=== PATIENT | male | born 1940 | race Caucasian/White ===

== ENCOUNTER 2023-02-25 20:00 | Emergency (ER) | payer MEDICARE, BC ==
[~2023-02-25 20:00] MED LIST: Iopamidol 370 76% 100 ML VIAL ONE
[2023-02-25 20:57] LABS: ALT (SGPT) 20 U/L (8-55); AST (SGOT) 17 U/L (5-34); Albumin 4.1 g/dL (3.4-4.8); Alkaline Phosphatase 86 U/L (40-110); Anion Gap 14 mmol/L (10-20); BUN (Urea Nitrogen) 14 mg/dL (8.4-25.7); Bilirubin, Total 0.3 mg/dL (0.2-1.2); Calc. Creatinine Clearance 0 mL/min (70-130); Calcium 9.2 mg/dL (7.8-10.44); Carbon Dioxide 22 mmol/L (23-31); Chloride 103 mmol/L (98-107); Estimated GFR 85; Globulin 2.7 g/dL (2.4-3.5); Glucose 181 mg/dL (83-110); Potassium 4.1 mmol/L (3.5-5.1); Protein, Total 6.8 g/dL (5.8-8.1); Sodium 135 mmol/L (136-145)
[2023-02-25 21:02] LABS: Hematocrit 37.8 % (38.8-50.0); Mean Corpuscular HGB CONC 34.4 g/dL (32.0-36.0); Mean Corpuscular Hemoglobin 30.7 pg (27.0-33.0); Mean Corpuscular Volume 89.4 fl (81.2-95.1); Mean Platelet Volume 9.7 fl (7.4-10.4); Platelet Count 189 10x3/uL (150-450); RBC Distribution Width 14.9 % (11.5-14.5); Red Blood Cell (RBC) Count 4.23 10x6/uL (4.32-5.72); White Blood Cell (WBC) Count 14.8 10x3/uL (3.5-10.5)
[2023-02-25 21:04] LABS: MDiff Complete? YES
[2023-02-25 21:08] LABS: Eosinophils 1 % (0-10); Lymphocytes 54 % (21-51); Monocytes 5 % (0-10); Neutrophil 38 % (42-75); Reactive Lymphocytes 1 % (0-10)
[2023-02-25 21:16] LABS: Anisocytosis SLIGHT = 6-15 cells (100X) (0-5/hpf); Poikilocytosis SLIGHT = 6-15 cells (100X) (0-5/hpf)
[2023-02-25 21:17] LABS: Elliptocytes SLIGHT = 2-5 cells (100X) (0-1/hpf); Microcytosis SLIGHT = 6-15 cells (100X) (0-5/hpf); Platelet Adequacy Comment Appears Adequate
[2023-02-25 23:11] LABS: Troponin I Less than 0.010 ng/mL (< 0.028)
== END 2023-02-25 23:24 | disposition home or self-care (01) ==
LOC: CSHERS 20:00
DX: I10 Essential (primary) hypertension (principal)
CPT/HCPCS: 36415; 71045; 71275; 80053; 83880; 84484; 85025; 85379; 93005; Q9967

== ENCOUNTER 2023-10-07 10:04 | Emergency (ER) | payer MEDICARE, BC ==
[2023-10-07] MEDS ORDERED: cloNIDine 0.1 MG TAB ONE (10:46)
[2023-10-07] MEDS ORDERED: hydrALAZINE 25 MG TAB ONE (10:49)
[2023-10-07 11:12] LABS: Anion Gap 14 mmol/L (10-20); BUN (Urea Nitrogen) 14 mg/dL (8.4-25.7); Calc. Creatinine Clearance 0 mL/min (70-130); Calcium 9.8 mg/dL (7.8-10.44); Carbon Dioxide 24 mmol/L (23-31); Chloride 102 mmol/L (98-107); Estimated GFR 79; Glucose 119 mg/dL (83-110); Sodium 136 mmol/L (136-145)
== END 2023-10-07 11:43 | disposition home or self-care (01) ==
LOC: CSHERS 10:04
DX: I10 Essential (primary) hypertension (principal)
CPT/HCPCS: 36415; 80048; 99283

== ENCOUNTER 2023-11-02 11:12 | Observation (INO) | payer MEDICARE, BC ==
[2023-11-02 12:04] LABS: Hematocrit 37.3 % (38.8-50.0); Hemoglobin 13.4 g/dL (13.5-17.5); Mean Corpuscular HGB CONC 35.9 g/dL (32.0-36.0); Mean Corpuscular Hemoglobin 31.2 pg (27.0-33.0); Mean Corpuscular Volume 86.7 fL (81.2-95.1); Mean Platelet Volume 9.3 fL (7.4-10.4); Platelet Count 218 10x3/uL (150-450); White Blood Cell (WBC) Count 12.7 10x3/uL (3.5-10.5)
[2023-11-02 12:14] LABS: ALT (SGPT) 22 U/L (8-55); AST (SGOT) 19 U/L (5-34); Albumin 3.7 g/dL (3.4-4.8); Alkaline Phosphatase 63 U/L (40-110); Anion Gap 13 mmol/L (10-20); BUN (Urea Nitrogen) 19 mg/dL (8.4-25.7); Bilirubin, Total 0.6 mg/dL (0.2-1.2); Calc. Creatinine Clearance 0 mL/min (70-130); Calcium 9.3 mg/dL (7.8-10.44); Carbon Dioxide 22 mmol/L (23-31); Chloride 97 mmol/L (98-107); Estimated GFR 72; Globulin 2.7 g/dL (2.4-3.5); Glucose 127 mg/dL (83-110); Protein, Total 6.4 g/dL (5.8-8.1); Sodium 128 mmol/L (136-145)
[2023-11-02 12:15] LABS: Troponin I Less than 0.010 ng/mL (< 0.028)
[2023-11-02 12:29] LABS: Bilirubin Neg (Negative); Blood, Urine Negative (Negative); Clarity Clear (Clear); Glucose, Urine (Dipstick) 100 mg/dL (Negative); Ketone, Urine 15 mg/dL (Negative); Leukocyte Negative (Negative); Nitrite Negative (Negative); Protein, Urine (Dipstick) 30 mg/dl (Neg-Trace); Specific Gravity, Urine 1.015 (1.005-1.030); Urobilinogen Normal mg/dL (Less than 2); pH, Urine 6.5 (5.0-9.0)
[2023-11-02 12:33] LABS: MDiff Complete? YES
[2023-11-02 12:37] LABS: Eosinophils 4 % (0-10); Lymphocytes 65 % (21-51); Neutrophil 30 % (42-75); Other Cell Types 1
[2023-11-02 12:40] LABS: Platelet Adequacy Comment Platelets Normal
[2023-11-02] MEDS ORDERED: Senokot S 8.6-50 MG TAB PO PRN (14:31)
[2023-11-02] MEDS ORDERED: Acetaminophen/Codeine 30-300mg Tablet PO PRN (14:31)
[2023-11-02] MEDS ORDERED: Calcium Carbonate 500 MG ChewTAB PO PRN (14:31)
[2023-11-02] MEDS ORDERED: hydrALAZINE 20 MG/ML VIAL SLOW IVP PRN (14:33)
[2023-11-02 14:38] LABS: Bacteria/HPF Rare-Few HPF (None Seen); CAUTI Indications for Culture Pelvic or flank pain; RBC/HPF 0-3 HPF (0-3); WBC/HPF None Seen HPF (0-3)
[2023-11-02 14:40] LABS: Urine Culture Reflex No No
[2023-11-02] MEDS ORDERED: hydrALAZINE 25 MG TAB ONE (15:36)
[2023-11-02] MEDS ORDERED: hydrALAZINE 20 MG/ML VIAL ONE (15:36)
[2023-11-02] MEDS: hydrALAZINE 25 MG TAB PO SCH (15:45)
[2023-11-02] MEDS: hydrALAZINE 20 MG/ML VIAL SLOW IVP SCH (15:45)
[2023-11-02 16:09] LABS: Troponin I Less than 0.010 ng/mL (< 0.028)
[2023-11-02] MEDS ORDERED: Carvedilol 25 MG TAB ONE (17:15)
[2023-11-02] MEDS: Carvedilol 25 MG TAB PO SCH (17:22)
[2023-11-02 19:27] LABS: Troponin I Less than 0.010 ng/mL (< 0.028)
[2023-11-02 20:27] VITALS: BMI 26.6
[2023-11-02] MEDS: Apixaban 5 MG TAB PO SCH (21:20)
[2023-11-02] MEDS: Losartan 50 MG TAB PO SCH (21:20)
[2023-11-02] MEDS: Melatonin 3 MG TAB PO SCH (22:47)
[2023-11-03 04:06] LABS: #Basophils 0.04 10x3/uL (0.0-0.2); #Eosinphils 0.12 10x3/uL (0.0-0.5); #Monocytes 0.94 10x3/uL (0.0-1.1); #Neutrophils 4.73 10x3/uL (1.5-8.4); %Basophils 0.4 % (0.0-2.0); %Eosinophils 1.1 % (0.0-6.0); %Lymphocytes 47.7 % (18.0-47.0); %Monocytes 8.4 % (0.0-10.0); Hematocrit 37.4 % (38.8-50.0); Mean Corpuscular HGB CONC 34.8 g/dL (32.0-36.0); Mean Corpuscular Hemoglobin 30.6 pg (27.0-33.0); Mean Platelet Volume 9.3 fL (7.4-10.4); Platelet Count 210 10x3/uL (150-450); RBC Distribution Width 13.2 % (11.5-14.5); Red Blood Cell (RBC) Count 4.25 10x6/uL (4.32-5.72); White Blood Cell (WBC) Count 11.2 10x3/uL (3.5-10.5)
[2023-11-03 04:25] LABS: ALT (SGPT) 20 U/L (8-55); AST (SGOT) 14 U/L (5-34); Albumin 3.3 g/dL (3.4-4.8); Alkaline Phosphatase 58 U/L (40-110); Anion Gap 13 mmol/L (10-20); BUN (Urea Nitrogen) 16 mg/dL (8.4-25.7); Bilirubin, Total 0.6 mg/dL (0.2-1.2); Calc. Creatinine Clearance 66 mL/min (70-130); Carbon Dioxide 22 mmol/L (23-31); Chloride 99 mmol/L (98-107); Cholesterol 185 mg/dl (< 200 Desired); Estimated GFR 83; Globulin 2.6 g/dL (2.4-3.5); Glucose 123 mg/dL (83-110); HDL Cholesterol 46 mg/dL (>60 Neg Risk); LDL Cholesterol, Calculated 119 mg/dL; Potassium 3.8 mmol/L (3.5-5.1); Protein, Total 5.9 g/dL (5.8-8.1); Sodium 130 mmol/L (136-145); Triglycerides 102 mg/dL (Less than 150)
[2023-11-03] MEDS: Acetaminophen 325 MG TAB PO PRN (05:58)
[2023-11-03] MEDS: Clopidogrel Bisulfate 75 MG TAB PO SCH (08:27)
[2023-11-03] MEDS: Valsartan 80 MG TAB PO SCH (10:08)
[2023-11-03 12:26] VITALS: BP 144/67; TEMP 97.5
== END 2023-11-03 14:09 | disposition home or self-care (01) ==
LOC: CSHERS 11:12 → CSHERHOLD 14:12 → CSHTELE 19:56
PROVIDERS: ADMIT Family Medicine; ATTEND Family Medicine
DX: R07.89 Other chest pain (principal); I10 Essential (primary) hypertension; I16.0 Hypertensive urgency; I48.0 Paroxysmal atrial fibrillation; E87.1 Hypo-osmolality and hyponatremia; I25.10 Atherosclerotic heart disease of native coronary artery without angina pectoris; Z87.891 Personal history of nicotine dependence; Z79.01 Long term (current) use of anticoagulants; Z79.899 Other long term (current) drug therapy
CPT/HCPCS: 71045; 76770; 80053; 80061; 81001; 83880; 84484 ×2; 85025; 93005; 99285; J0360; 36415; 84443; G0378